=== PATIENT | female | born 1995 | race Caucasian/White ===

== ENCOUNTER 2017-09-29 07:34 | Day surgery (SDC) | payer OTHER ==
[2017-09-29] MEDS ORDERED: LR 1,000 ML IV ONE (08:09)
--- NOTE | 2017-09-29 08:53 | PDANEPAE ---
ANE History of Present Illness EGD and colonoscopy ANE Past Medical History - Cardiovascular History Hx Hypertension: No Hx Arrhythmias: No Hx Chest Pain: No Hx Coronary Artery / Peripheral Vascular Disease: No Hx CHF / Valvular Disease: No Hx Palpitations: No - Pulmonary History Hx COPD: No Hx Asthma/Reactive Airway Disease: No Hx Recent Upper Respiratory Infection: No Hx Oxygen in Use at Home: No Hx Sleep Apnea: No Sleep Apnea Screening Result - Last Documented: Negative - Neurologic History Hx Cerebrovascular Accident: No Hx Seizures: No Hx Dementia: No - Endocrine History Hx Diabetes: No Hypothyroid: No Hyperthyroid: No Obesity: no - Renal History Hx Renal Disorders: No - Liver History Hx Hepatic Disorders: No - Neurological & Psychiatric Hx Hx Neurological and Psychiatric Disorders: Yes Neurological / Psychiatric History Comment: anxiety - Cancer History Hx Cancer: No - Congenital Disorder History Hx Congenital Disorders: No - GI History GERD: mild Hx Gastrointestinal Disorders: Yes Gastrointestinal History Comment: chrohns disease. hx of multiple colonoscopies - Other Health History Other Health History: wears glasses/ contacts - Chronic Pain History Chronic Pain: No - Surgical History Prior Surgeries: corrective jaw surgery. multiple colonoscopies. wisdom teeth removed ANE Review of Systems Review of Systems: - Exercise capacity METS (RN): 4 METS ANE Patient History - Allergies Allergies/Adverse Reactions: mesalamine [From Pentasa] Allergy (Verified 09/16/17 12:25) hair loss - Home Medications Home Medications: Folic Acid 09/16/17 [Last Taken 09/28/17] Herbals/Supplements -Info Only 09/16/17 [Last Taken 09/28/17] Methotrexate 09/16/17 [Last Taken 09/22/17] Ortho Tri-Cyclen Lo Tablet 09/16/17 [Last Taken 09/28/17] Remicade Inj 100 mg (*) 09/16/17 [Last Taken 09/15/17] - NPO status NPO Since - Liquids (Date): 09/28/17 NPO Since - Liquids (Time): 19:30 NPO Since - Solids (Date): 09/28/17 NPO Since - Solids (Time): 17:00 - Anes Hx Anes Hx: no prior problems - Smoking Hx Smoking Status: Never smoked Marijuana use: No - Alcohol Use Alcohol Use: None - Family Anes Hx Family Anes Hx: none Family Hx Anesthesia Complications: none ANE Labs/Vital Signs - Vital Signs Blood Pressure: 119/68 Heart Rate: 95 Respiratory Rate: 16 O2 Sat (%): 94 Height: 170.18 cm Weight: 60.781 kg ANE Physical Exam - Airway Neck exam: FROM Mallampati Score: Class 1 Mouth exam: normal dental/mouth exam - Pulmonary Pulmonary: no respiratory distress - Cardiovascular Cardiovascular: regular rate and rhythym, no murmur, rub, or gallop - ASA Status ASA Status: II ANE Anesthesia Plan Anesthesia Plan: GA with mask
[2017-09-29] MEDS ORDERED: PROPOFOL/EMULSION 500 MG/50 ML BOTTLE IV ONE (09:04)
[2017-09-29] MEDS ORDERED: MIDAZOLAM 2 MG/2 ML VIAL ONE (09:04)
--- NOTE | 2017-09-29 09:05 | PDGENHP ---
History & Physical Chief Complaint: crohns, celiac History of Present Illness: crohns age 13, celiac Pertinent Past, Social, Family History: no t, no ccobacco, no alcohol, no colon cancer Relevant Physical Exam: A+Ox3. CTA. S1S2. +BS, soft llq pain no r/g Cardiorespiratory Assessment: class 2 pt
[2017-09-29] MEDS ORDERED: NALOXONE HCL 0.4 MG/ML INJ IVP PRN (09:48)
[2017-09-29] MEDS ORDERED: ONDANSETRON 4 MG/2 ML VIAL IVP PRN (09:48)
[2017-09-29] MEDS ORDERED: fentaNYL 100 MCG/2 ML INJ IVP PRN (09:48)
[2017-09-29] MEDS ORDERED: HYDROCODONE/APAP 5/325 TAB PO PRN (09:48)
[2017-09-29] MEDS ORDERED: OXYCODONE/APAP 5/325 TAB PO PRN (09:48)
--- NOTE | 2017-09-29 09:48 | POSTANESTH ---
Post Anesthetic Evaluation Cardiovascular Status: Normal, Stable Respiratory Status: Normal, Stable Level of Consciousness/Mental Status: Can Participate in Eval Pain Control: Adequate, Prn Tx Ordered Nausea/Vomiting Control: Adequate, Prn Tx Ordered Complications Possibly Related to Anesthesia: None Noted
[2017-09-29 10:17] VITALS: PULSE 86
--- NOTE | 2017-09-29 10:29 | GIREPORT ---
[facility] - Endoscopy Department Patient Name: Lizbeth Ohara Procedure Date: 09/29/2017 8:33 AM Patient Type: Outpatient Attending MD/ ER Physician: Shivam Mederos Procedure: Upper GI endoscopy Indications: Abdominal pain, Suspected celiac disease Providers: Christian Caraballo MD Referring MD: Keri Russell MD, Kamran Jenkins MD Medicines: Total IV Anesthesia (TIVA) Complications: No immediate complications. Estimated blood loss: Minimal. Description of Procedure: After obtaining informed consent, the endoscope was passed under direct vision. Throughout the procedure, the patient's blood pressure, pulse, and oxygen saturations were monitored continuously. The Endoscope was intro duced through the mouth, and advanced to the third part of duodenum. The uppe r GI endoscopy was accomplished without difficulty. The patient tolerated th e procedure well. Findings: The examined esophagus was normal. The entire examined stomach was normal. Scattered mild mucosal variance characterized by altered texture was fo und in the duodenal bulb. Biopsies for histology were taken with a cold for ceps for evaluation of celiac disease. Estimated blood loss was minimal. The second portion of the duodenum and third portion of the duodenum we re normal. Biopsies for histology were taken with a cold forceps for evalu ation of celiac disease. Estimated blood loss was minimal. Estimated Blood Loss: Estimated blood loss was minimal. Post Op Diagnosis: - Normal esophagus. - Normal stomach. - Mucosal variant in the duodenum. Biopsied. - Normal second portion of the duodenum and third portion of the duoden um. Biopsied. Recommendation: - Await pathology results. - My office will call with the pathology result with 5-7 days. If you h ave not heard from my office by 12-14, do not assume the pathology is rachelle l, please call [phone] to get the pathology results. - Perform a colonoscopy today. - Continue present medications. - Return to primary care physician as previously scheduled. - Return to GI clinic in 4 weeks. - Thank you for allowing me to help in your patient's care. Do not hesi ludwig to call with any questions. Attending Participation: I personally performed the entire procedure. Ilya Lucas M.D Lance Caraballo MD 09/29/2017 10:29:15 AM This report has been signed electronicallyMathew MD Ilya Number of Addenda: 0 Note Initiated On: 09/29/2017 8:33 AM [email or web address]
--- NOTE | 2017-09-29 10:35 | GIREPORT ---
[facility] - Endoscopy Department Patient Name: Lizbeth Ohara Procedure Date: 09/29/2017 8:42 AM Patient Type: Outpatient Attending MD/ ER Physician: Shivam Mederos Procedure: Colonoscopy Indications: High risk colon cancer surveillance: Crohn's colitis of 8 (or more) yea rs duration Providers: Lance Caraballo MD Medicines: Total IV Anesthesia (TIVA) Complications: No immediate complications. Estimated blood loss: Minimal. Description of Procedure: After obtaining informed consent, the scope was passed under direct vis ion. Throughout the procedure, the patient's blood pressure, pulse, and oxyg en saturations were monitored continuously. The was introduced through the anus and advanced to the terminal ileum, with identification of the appendic eal orifice and IC valve. The colonoscopy was performed without difficulty. The patient tolerated the procedure well. The quality of the bowel preparat ion was good. Findings: The perianal exam findings include anal canal stenosis. The digital rectal exam findings include anal stricture. The terminal ileum appeared normal. Biopsies were taken with a cold for ceps for histology. Estimated blood loss was minimal. The proximal transverse colon, mid transverse colon, ascending colon an d cecum appeared normal. Four biopsies were taken every 10 cm with a cold forceps from the cecum, ascending colon and right transverse colon for Crohn's disease surveillance. These biopsy specimens from the right col on were sent to Pathology. Estimated blood loss was minimal. The proximal descending colon, splenic flexure and distal transverse co ryan appeared normal. Four biopsies were taken every 10 cm with a cold force ps from the left transverse colon and descending colon for Crohn's disease surveillance. These biopsy specimens from the left colon were sent to Pathology. Estimated blood loss was minimal. A diffuse area of severely erythematous, friable (with contact bleeding ), granular, hemorrhagic, inflamed and ulcerated mucosa was found in the rectum, in the sigmoid colon, in the mid descending colon and in the di stal descending colon. Four biopsies were taken every 10 cm with a cold forc eps from the descending colon, sigmoid colon and rectum for Crohn's disease surveillance. These biopsy specimens from the inflamed left colon were sent to Pathology. Estimated blood loss was minimal. The exam was otherwise without abnormality. Estimated Blood Loss: Estimated blood loss was minimal. Post Op Diagnosis: - Anal canal stenosis found on perianal exam. - Anal stricture found on digital rectal exam. - The examined portion of the ileum was normal. Biopsied. - The proximal transverse colon, mid transverse colon, ascending colon and cecum are normal. Biopsied. - The proximal descending colon, splenic flexure and distal transverse colon are normal. Biopsied. - Erythematous, friable (with contact bleeding), granular, hemorrhagic, inflamed and ulcerated mucosa in the rectum, in the sigmoid colon, in t he mid descending colon and in the distal descending colon. Biopsied. - The examination was otherwise normal. Recommendation: - Await pathology results. - My office will call with the pathology result with 5-7 days. If you h ave not heard from my office by 14, do not assume the pathology is rachelle l, please call [phone] to get the pathology results. - Repeat colonoscopy in 1 year for surveillance. - Patient has a contact number available for emergencies. The signs and symptoms of potential delayed complications were discussed with the pat ient. Return to normal activities tomorrow. Written discharge instructions we re provided to the patient. - Continue present medications. Will need to alter biologic therapy as clearly with significant active disease still present. - Discharge patient to home (ambulatory). - Return to primary care physician as previously scheduled. - Return to GI clinic in 4 weeks. - Thank you for allowing me to help in your patient's care. Do not hesi ludwig to call with any questions. Attending Participation: I personally performed the entire procedure. Ilya Lucas M.D Lance Caraballo MD 09/29/2017 10:34:55 AM This report has been signed electronicallyMathew MD Ilya Number of Addenda: 0 Note Initiated On: 09/29/2017 8:42 AM Total Procedure Duration Time 0 hours 27 minutes 26 seconds [email or web address]
[2017-09-29 11:02] VITALS: TEMP 97.7
[2017-09-29 11:31] VITALS: RESP 16
[2017-09-29 12:26] VITALS: BP 115/72; O2SAT 93
== END 2017-09-29 12:20 | disposition home or self-care (01) ==
LOC: FSGY 07:34
PROVIDERS: ATTEND Internal Medicine Gastroenterology
PROC: 0DBF8ZX Excision of Right Large Intestine, Via Natural or Artificial Opening Endoscopic, Diagnostic (ICD-10-PCS; principal; 2017-09-29 09:00)
PROC: 0DBG8ZX Excision of Left Large Intestine, Via Natural or Artificial Opening Endoscopic, Diagnostic (ICD-10-PCS; principal; 2017-09-29 09:00)
PROC: 0DB98ZX Excision of Duodenum, Via Natural or Artificial Opening Endoscopic, Diagnostic (ICD-10-PCS; principal; 2017-09-29 09:00)
DX: K50.90 Crohn's disease, unspecified, without complications (principal); K90.0 Celiac disease
CPT/HCPCS: J2250; J2704

== ENCOUNTER → 2017-10-16 | Outpatient (CLI) | payer OTHER ==
[~2017-10-16] MED LIST: GADOBUTROL 10 ML VIAL IVP ONE
== END ==
LOC: FIMAGING 07:01
PROVIDERS: ATTEND Internal Medicine Gastroenterology
DX: K50.818 Crohn's disease of both small and large intestine with other complication (principal)
CPT/HCPCS: A9585